=== PATIENT | female | born 1975 | race African-American/Black ===

== ENCOUNTER 2019-04-05 19:15 | Emergency (ER) | payer MEDICAID ==
[~2019-04-05] VITALS: Ht 165.1 cm; Wt 78.0 kg
[2019-04-05 20:49] VITALS: BP 142/89
== END 2019-04-05 21:05 | disposition home or self-care (01) ==
LOC: ER 19:15
DX: K04.7 Periapical abscess without sinus (principal); I10 Essential (primary) hypertension; J45.909 Unspecified asthma, uncomplicated; Z88.0 Allergy status to penicillin
CPT/HCPCS: 99283

== ENCOUNTER 2019-06-10 18:04 | Emergency (ER) | payer MEDICAID ==
[~2019-06-10] VITALS: Ht 165.1 cm; Wt 73.0 kg
[2019-06-10 18:26] VITALS: BP 152/99
== END 2019-06-10 19:35 | disposition home or self-care (01) ==
LOC: ER 18:04
DX: H66.92 Otitis media, unspecified, left ear (principal); K04.7 Periapical abscess without sinus; R20.2 Paresthesia of skin; I10 Essential (primary) hypertension; J45.909 Unspecified asthma, uncomplicated; Z88.0 Allergy status to penicillin
CPT/HCPCS: 99283